=== PATIENT | female | born 1970 | race Caucasian/White ===

== ENCOUNTER 2017-02-24 10:34 | Emergency (ER) | payer BC ==
[2017-02-24 11:46] VITALS: BP 130/84
--- NOTE | 2017-02-24 13:18 | UC ---
Abdominal Pain Female HPI - HPI Summary HPI Summary: Pt c/o intermittent Right upper abdominal pain that began "a few days ago" Also c/o sudden onset of generalized malaise X 1 day. 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 Denies urinary symptoms of frequency, urgency or dysuria. Also dneies hx of kidney stones. Densi any changes in BM pattern. Wilfred hx of IBS crohns and diverticulitis - History of Current Complaint Chief Complaint: UCGeneralIllness Stated Complaint: URINARY,EARS,COUGH Time Seen by Provider: 02/24/17 12:39 Hx Obtained From: Patient Hx Last Menstrual Period: 12/16/16- pt states period is irregular ?: No Onset/Duration: Sudden Onset - malaise, Gradual Onset - abdominal pain Severity Initially: Mild Severity Currently: Mild Location: Discrete At: RUQ Radiates: Yes Radiates to: RLQ Character: Colicy, Cramping Aggravating Factor(s): Nothing Alleviating Factor(s): Spontaneous Resolution Associated Signs and Symptoms: Positive: Negative Allergies/Adverse Reactions: Allergies Allergy/AdvReac Type Severity Reaction Status Date / Time Erythromycin Allergy Intermediate Vomiting Verified 02/24/17 11:38 PMH/Surg Hx/FS Hx/Imm Hx Previously Healthy: Yes - Surgical History Surgical History: Yes Surgery Procedure, Year, and Place: RIGHT knee - Family History Known Family History: Positive: Cardiac Disease - Social History Occupation: Employed Full-time Lives: With Family Alcohol Use: Occasionally Substance Use Type: None Smoking Status (MU): Former Smoker Type: Cigarettes Have You Smoked in the Last Year: No When Did the Patient Quit Smoking/Using Tobacco: 2009 - Immunization History Most Recent Influenza Vaccination: 2017 Review of Systems Constitutional: Fatigue Skin: Negative Eyes: Negative ENT: Negative Respiratory: Negative Cardiovascular: Negative Gastrointestinal: Abdominal Pain Genitourinary: Negative Motor: Negative Neurovascular: Negative Musculoskeletal: Myalgia Neurological: Negative Psychological: Negative Is Patient Immunocompromised?: No All Other Systems Reviewed And Are Negative: Yes Physical Exam Triage Information Reviewed: Yes Appearance: Well-Appearing Vital Signs: Initial Vital Signs Temp 98.1 F 02/24/17 11:39 Pulse 83 02/24/17 11:39 Resp 16 02/24/17 11:39 BP 130/84 02/24/17 11:39 Pulse Ox 99 02/24/17 11:39 Vital Signs Reviewed: Yes Eye Exam: Normal ENT Exam: Normal Dental Exam: Normal Neck exam: Normal Respiratory Exam: Normal Cardiovascular Exam: Normal Abdominal Exam: Other Abdomen Description: Positive: Other: - tenderness RUQ lateral and mid with palpation Bowel Sounds: Positive: Present Musculoskeletal Exam: Normal Neurological Exam: Normal Psychological Exam: Normal Skin Exam: Normal Abd Pain Female Course/Dx - Differential Dx/Diagnosis Differential Diagnosis: Constipation, Irritable Bowel Syndrome Provider Diagnoses: abdominal pain Discharge - Discharge Plan Condition: Stable Disposition: HOME Patient Education Materials: Abdominal Pain (ED) Referrals: Deloris Henry MD [Primary Care Provider] - If Needed
== END 2017-02-24 13:24 | disposition home or self-care (01) ==
LOC: UCCORT 10:34
DX: R10.11 Right upper quadrant pain (principal); Z72.89 Other problems related to lifestyle; Z87.891 Personal history of nicotine dependence
CPT/HCPCS: 81003; 87502; 99211; G0463

== ENCOUNTER 2017-07-18 13:08 | Emergency (ER) | payer BC ==
--- NOTE | 2017-07-18 13:46 | UC ---
Hand/Wrist HPI - HPI Summary HPI Summary: 47 yo female presents with left wrist volar bruising since last night. She tells me that she was doing "intense burpees" at the gym yesterday. Denies specific injury, but later that night noticed bruising to her wrist. No numbness or tingling. Also has had a sore throat the last 2 days and has been exposed to people dx'd with strep throat. She is worried she might have it. Denies fever, chills, headache, cough, SOB, chest pain. - History Of Current Complaint Stated Complaint: WRIST INJURY,SORE THROAT Time Seen by Provider: 07/18/17 13:46 Hx Obtained From: Patient Hx Last Menstrual Period: 12/16/16- pt states period is irregular Onset/Duration: Sudden Onset Severity Initially: Mild Severity Currently: Mild Pain Intensity: 2 Pain Scale Used: 0-10 Numeric - Allergies/Home Medications Allergies/Adverse Reactions: Allergies Allergy/AdvReac Type Severity Reaction Status Date / Time erythromycin base Allergy Vomiting Verified 07/18/17 13:41 Home Medications: Home Medications Acetaminophen [Mapap] 325 mg PO Q4HR PRN 07/18/17 [History Confirmed 07/18/17] Ibuprofen 400 mg PO Q6HR PRN 07/18/17 [History Confirmed 07/18/17] Multivitamin [Multivitamins] 1 tab PO DAILY 07/18/17 [History Confirmed 07/18/17 ] Tiotropium [place] [Spiriva Respimat] 1 inh INH DAILY 07/18/17 [History Confirmed 07/18/17] PMH/Surg Hx/FS Hx/Imm Hx Respiratory History: COPD Psychological History: Anxiety, Depression - Surgical History Surgical History: Yes Surgery Procedure, Year, and Place: RIGHT knee - Family History Known Family History: Positive: Cardiac Disease - Social History Occupation: Employed Full-time Lives: With Family Alcohol Use: Occasionally Substance Use Type: None Smoking Status (MU): Former Smoker Type: Cigarettes Have You Smoked in the Last Year: No When Did the Patient Quit Smoking/Using Tobacco: 2009 - Immunization History Most Recent Influenza Vaccination: 2016 Review of Systems Constitutional: Negative Skin: Bruising - Left wrist Eyes: Negative ENT: Sore Throat Respiratory: Negative Cardiovascular: Negative Neurovascular: Negative Musculoskeletal: Negative Neurological: Negative Psychological: Negative All Other Systems Reviewed And Are Negative: Yes Physical Exam - Summary Physical Exam Summary: GENERAL: NAD. WDWN. No pain distress. SKIN: Bruise left wrist as below in MSK. No rashes, sores, lesions, or open wounds. HEENT: Head: AT/NC Eyes: EOM intact. Conjunctiva clear without inflammation or discharge. Ears: Hearing grossly normal. TMs intact, no bulging, erythema, or edema. Nose: Nasal mucosa pink and moist. NTTP maxillary and frontal sinus. Throat: Posterior oropharynx without exudates, erythema, or tonsillar enlargement. Uvula midline. NECK: Supple. Nontender. No lymphadenopathy. CHEST: CTAB. No r/r/w. No accessory muscle use. Breathing comfortably and in no distress. CV: RRR. Without m/r/g. Left radial and ulnar pulses intact. Brisk cap refill. MSK: Left wrist: Mild ecchymosis overlying the radial volar aspect. NTTP. FROM. Strength 5/5 including manager science strength. No edema or obvious bony deformities. No snuffbox tenderness. NEURO: Alert. CN II-XII grossly intact. PSYCH: Age appropriate behavior. Triage Information Reviewed: Yes Vital Signs: Vital Signs: Temp Pulse Resp BP Pulse Ox 98.6 F 86 16 138/86 97 07/18/17 13:52 07/18/17 13:52 07/18/17 13:52 07/18/17 13:52 07/18/17 13:52 Hand/Wrist Course/Dx - Course Course Of Treatment: POC strep negative. XR: REPORT AND. IMPRESSION: Mild soft tissue edema about the wrist without significant focality. Normal. articular alignment. Negative for fracture. Mild joint space narrowing at the scaphoid. trapezium and trapezium first metacarpal articulations with suggestion of mild subchondral. sclerosis consistent with early osteoarthritis. Pt has a wrist splint at home and will use this. Advised to ICE the area and f/u with orthopedics if symptoms persist. - Differential Dx/Diagnosis Provider Diagnoses: Left wrist pain. Sore throat Discharge - Sign-Out/Discharge Documenting (check all that apply): Discharge/Admit/Transfer - Discharge Plan Condition: Stable Disposition: HOME Patient Education Materials: Contusion in Adults (ED) Referrals: Deloris Henry MD [Primary Care Provider] - Fauzia Clements MD [Medical Doctor] - If Needed Additional Instructions: If you develop a fever, shortness of breath, chest pain, new or worsening symptoms - please call your PCP or go to the ED. Your blood pressure was mildly elevated at todays visit. Please see your primary provider within 4 weeks for recheck and re-evaluation. 1) Rest, Ice, and elevate your wrist/hand as much as possible over the next 2-3 days 2) May take ibuprofen 600mg every 6-8hours as needed for pain 3) If your wrist pain/swelling continues beyond 7-10 days, please call Orthopedics at the number below to schedule a follow up appointment. - Billing Disposition and Condition Condition: STABLE Disposition: Home
[2017-07-18 13:56] VITALS: BP 138/86
--- NOTE | 2017-07-18 14:20 | RAD ---
INDICATION: LEFT wrist pain and swelling. Coats a pop. Bruising. COMPARISON: No relevant prior exams available on the [facility] PACS for comparison. TECHNIQUE: AP, lateral, and oblique views LEFT wrist. REPORT AND IMPRESSION: Mild soft tissue edema about the wrist without significant focality. Normal articular alignment. Negative for fracture. Mild joint space narrowing at the scaphoid trapezium and trapezium first metacarpal articulations with suggestion of mild subchondral sclerosis consistent with early osteoarthritis.
== END 2017-07-18 14:30 | disposition home or self-care (01) ==
LOC: UCEAST 13:08
DX: M25.532 Pain in left wrist (principal); S60.212A Contusion of left wrist, initial encounter; X58.XXXA Exposure to other specified factors, initial encounter; Y93.B9 Activity, other involving muscle strengthening exercises; Y92.39 Other specified sports and athletic area as the place of occurrence of the external cause; J02.9 Acute pharyngitis, unspecified; J44.9 Chronic obstructive pulmonary disease, unspecified; F41.9 Anxiety disorder, unspecified; F32.9 Major depressive disorder, single episode, unspecified; Z88.1 Allergy status to other antibiotic agents; Z87.891 Personal history of nicotine dependence; Z82.49 Family history of ischemic heart disease and other diseases of the circulatory system
CPT/HCPCS: 87651; 99212; G0463